=== PATIENT | female | born 1950 | race Caucasian/White ===

== ENCOUNTER 2016-04-03 16:58 | Emergency (ER) | payer BC ==
[~2016-04-03] VITALS: Ht 154.9 cm; Wt 51.8 kg
[~2016-04-03 16:58] MED LIST: ASPI-589 PO; BSP15 PO; DIVA500T3 PO; DULO60CA44 PO; FLUR15CA12 PO; LTHCR300 PO; RASA1TAB PO; SYN75 PO
[2016-04-03 17:01] VITALS: TEMP 36.6; Ht 154.9 cm; Wt 51.8 kg
--- NOTE | 2016-04-03 17:41 | EMERGENCY ROOM VISIT NOTE ---
History Report prepared by Tanmay: Chelita Tong Under the Supervision of: Dr. Savita Macias M.D. First contact with patient: 17:14 Chief Complaint: MENTAL HEALTH EVALUATION Stated Complaint: SEVERE MENTAL PROBLEMS History of Present Illness The patient is a 66 year old female who presents to the Emergency Room with complaints of constant depression beginning 6 weeks ago. The patient states that she has a history of depression over the last few years. She reports that her in July and the holiday season has been difficult without him. The patient's sister in-law notes that she lives at [facility] and has been depressed after her husbands passing. She states that she gets depressed around the holidays and has been especially depressed after her and her husbands birthdays and anniversary. The sister in-law reports that she has attempted suicide and overdose in the past. She notes associated tiredness, paranoia, lack of sleep, suicidal ideation, flat affect, and lack of eating. She denies any dehydration. The patient's sister in-law notes that the patient gets very fixated on things and paranoid. Source of History: patient, family Onset: 6 weeks ago Position: other (mental health) Quality: other (depressed) Timing: constant Modifying Factors (Worsening): other (holidays) Note: She notes associated tiredness, paranoia, lack of sleep, suicidal ideation, flat affect, and lack of eating. She denies any dehydration. Review of Systems See HPI for pertinent positives & negatives. A total of 10 systems reviewed and were otherwise negative. Past Medical & Surgical Medical Problems: (1) Alcoholism (2) Bipolar disorder (3) Parkinson disease Family History No pertinent family history stated. Social History Smoking Status: Never Smoker Marital Status: Housing Status: other ([facility]) Occupation Status: retired Current/Historical Medications Scheduled B-Complex Vitamins (B Complex), 1 CAP PO DAILY Cholecalciferol (Vitamin D3), 2,000 INTER.UNIT PO DAILY Fish Oil (Castile-3), 1 CAP PO DAILY Furosemide (Lasix), 40 MG PO Q2D Iron-Vitamin C (Vitron-C), 1 TAB PO DAILY Lamotrigine (Lamictal), 50 MG PO QAM Lamotrigine (Lamictal), 75 MG PO HS Levothyroxine Sodium (Synthroid), 75 MCG PO DAILYBB Lorazepam (Ativan), 0.5 TAB PO BID Lorazepam (Ativan), 1 MG PO HS Magnesium (Magnesium), 250 MG PO HS Mirtazapine (Remeron), 15 MG PO HS Olanzapine (Zyprexa), 7.5 MG PO HS Polyethylene Glycol 3350 (Glycolax), 17 GM PO UD Sennosides (Senokot), 2 TAB PO HS Vortioxetine HBr (Trintellix), 10 MG PO DAILY Scheduled PRN Bisacodyl (Dulcolax), 1 SUPP MN Q12 PRN for Constipation Lorazepam (Ativan), 0.5 MG PO Q8 PRN for Anxiety/Agitation Allergies Coded Allergies: Penicillins (Verified Allergy, Intermediate, Rash, 04/03/16) Physical Exam Vital Signs Date Time Temp Pulse Resp B/P Pulse Ox O2 Delivery O2 Flow Rate FiO2 04/03/16 22:50 84 18 151/101 100 04/03/16 21:18 78 18 141/90 99 Room Air 04/03/16 19:16 71 20 164/91 100 04/03/16 17:01 36.6 103 18 148/88 98 Room Air Physical Exam Vital signs reviewed. General: Well-appearing, flat affect, in no significant distress. HEENT: No scleral icterus, PERRLA, neck supple. Atraumatic. Cardiovascular: Regular rate and rhythm, no extra sounds. Pulmonary: Clear to auscultation bilaterally, normal work of breathing. Abdomen: Soft, nontender, nondistended, positive bowel sounds. Musculoskeletal: Atraumatic, no peripheral edema. Neurologic: Patient awake alert and oriented x 3, full strength in all 4 extremities. Cranial nerves 2 through 12 grossly intact. Skin: Warm, dry, no rash Psych: Positive suicidal ideation, negative homicidal ideation. Medical Decision & Procedures Laboratory Results 04/03/16 18:02 Red Blood Count 5.06, Mean Corpuscular Volume 87.2, Mean Corpuscular Hemoglobin 29.8, Mean Corpuscular Hemoglobin Concent 34.2, Mean Platelet Volume 9.2, Neutrophils (%) (Auto) 65.4, Lymphocytes (%) (Auto) 24.4, Monocytes (%) (Auto) 9.6, Eosinophils (%) (Auto) 0.2, Basophils (%) (Auto) 0.4, Neutrophils # (Auto) 3.40, Lymphocytes # (Auto) 1.27, Monocytes # (Auto) 0.50, Eosinophils # (Auto) 0.01, Basophils # (Auto) 0.02 04/03/16 18:02 Test 04/03/16 18:02 04/03/16 18:25 White Blood Count 5.20 K/uL (4.8-10.8) Red Blood Count 5.06 M/uL (4.2-5.4) Hemoglobin 15.1 g/dL (12.0-16.0) Hematocrit 44.1 % (37-47) Mean Corpuscular Volume 87.2 fL (80-100) Mean Corpuscular Hemoglobin 29.8 pg (25-34) Mean Corpuscular Hemoglobin Concent 34.2 g/dl (32-36) Platelet Count 387 K/uL (130-400) Mean Platelet Volume 9.2 fL (7.4-10.4) Neutrophils (%) (Auto) 65.4 % Lymphocytes (%) (Auto) 24.4 % Monocytes (%) (Auto) 9.6 % Eosinophils (%) (Auto) 0.2 % Basophils (%) (Auto) 0.4 % Neutrophils # (Auto) 3.40 K/uL (1.4-6.5) Lymphocytes # (Auto) 1.27 K/uL (1.2-3.4) Monocytes # (Auto) 0.50 K/uL (0.11-0.59) Eosinophils # (Auto) 0.01 K/uL (0-0.5) Basophils # (Auto) 0.02 K/uL (0-0.2) RDW Standard Deviation 44.5 fL (36.4-46.3) RDW Coefficient of Variation 13.9 % (11.5-14.5) Immature Granulocyte % (Auto) 0.0 % Immature Granulocyte # (Auto) 0.00 K/uL (0.00-0.02) Anion Gap 7.0 mmol/L (3-11) Est Creatinine Clear Calc Drug Dose 42.3 ml/min Estimated GFR () 68.5 Estimated GFR (Non- 59.1 BUN/Creatinine Ratio 13.8 (10-20) Calcium Level 9.1 mg/dl (8.5-10.1) Magnesium Level 2.6 mg/dl (1.8-2.4) Total Bilirubin 0.6 mg/dl (0.2-1) Direct Bilirubin 0.1 mg/dl (0-0.2) Aspartate Amino Transf (AST/SGOT) 14 U/L (15-37) Alanine Aminotransferase (ALT/SGPT) 25 U/L (12-78) Alkaline Phosphatase 91 U/L (45-117) Total Protein 7.3 gm/dl (6.4-8.2) Albumin 3.9 gm/dl (3.4-5.0) Salicylates Level < 1.7 mg/dl (2.8-20) Acetaminophen Level < 2 ug/ml (10-30) Ethyl Alcohol mg/dL < 3.0 mg/dl (0-3) Urine Color YELLOW Urine Appearance CLEAR (CLEAR) Urine pH 7.0 (4.5-7.5) Urine Specific [place] 1.000 (1.000-1.030) Urine Protein NEG (NEG) Urine Glucose (UA) NEG (NEG) Urine Ketones NEG (NEG) Urine Occult Blood NEG (NEG) Urine Nitrite NEG (NEG) Urine Bilirubin NEG (NEG) Urine Urobilinogen NEG (NEG) Urine Leukocyte Esterase NEG (NEG) Urine Opiates Screen NEG (NEG) Urine Methadone, Qualitative NEG (NEG) Urine Barbiturates NEG (NEG) Urine Phencyclidine (PCP) Level NEG (NEG) Ur Amphetamine/Methamphetamine NEG (NEG) MDMA (Ecstasy) Screen NEG (NEG) Urine Benzodiazepines Screen NEG (NEG) Urine Cocaine Metabolite NEG (NEG) Urine Marijuana (THC) NEG (NEG) Laboratory results per my review. ECG Indication: other Rate (beats per minute): 83 Rhythm: normal sinus Findings: no acute ischemic change, no ectopy, other (sinus arrythmia, QTC 413) ED Course 1729: Past medical records reviewed. The patient was evaluated in room A5. A complete history and physical examination was performed. 2030: Upon reevaluation, the patient is resting comfortably. I discussed laboratory results with the patient. She verbalized agreement of the treatment plan. The patient will be transferred to [facility] for further management and care. Medical Decision Differential diagnosis: Etiologies such as mood disorder, infection, hypoglycemia, electrolyte abnormalities, cardiac sources, intracerebral event, toxicologic, neurologic, as well as others were entertained. This patient was evaluated and appeared to be in no significant distress. She was medically cleared and evaluated by mental health. The patient was accepted for inpatient treatment at [facility]. Secure transportation arrangements were made. Impression Primary Impression: Suicidal ideation Additional Impression: Depression Scribe Attestation The scribe's documentation has been prepared under my direction and personally reviewed by me in its entirety. I confirm that the note above accurately reflects all work, treatment, procedures, and medical decision making performed by me. Departure Information Dispostion Mental Health Acute Care Referrals Blaire Weir M.D. (PCP) Patient Instructions A Signature Page, [facility]
[2016-04-03] MEDS ORDERED: [UNRECOGNIZED DRUG - CODE] PO (17:48)
[2016-04-03] MEDS ORDERED: OMEG10007 PO (17:48)
[2016-04-03] MEDS ORDERED: FERRTAB18 PO (17:48)
[2016-04-03] MEDS ORDERED: MAGN250T9 PO (17:48)
[2016-04-03] MEDS ORDERED: LORA-741 PO (17:48)
[2016-04-03] MEDS ORDERED: BISA10SU3 PR (17:48)
[2016-04-03] MEDS ORDERED: ATV/1 PO ×2 (17:48)
[2016-04-03] MEDS ORDERED: CHOL20007 PO (17:48)
[2016-04-03] MEDS ORDERED: B-CO1CAP3 PO (17:48)
[2016-04-03] MEDS ORDERED: MIRT15TA PO (17:48)
[2016-04-03] MEDS ORDERED: ZYP/75 PO (17:48)
[2016-04-03] MEDS ORDERED: VORT10TA12 PO (17:48)
[2016-04-03] MEDS ORDERED: SENN-63 PO (17:48)
[2016-04-03] MEDS ORDERED: FRS/40 PO (17:48)
[2016-04-03] MEDS ORDERED: LAMO25TA PO ×2 (17:48)
[2016-04-03 18:16] LABS: BASO % 0.4 %; BASO ABS # 0.02 K/uL (0-0.2); COMPLETE YES; EOS % 0.2 %; HEMATOCRIT 44.1 % (37-47); LYMPH % 24.4 %; LYMPH ABS # 1.27 K/uL (1.2-3.4); MEAN CELL VOLUME 87.2 fL (80-100); MEAN CORPUSCULAR HEMOGLOBIN 29.8 pg (25-34); MEAN CORPUSCULAR HGB CONC 34.2 g/dl (32-36); MEAN PLATELET VOLUME 9.2 fL (7.4-10.4); MONO % 9.6 %; NEUT % 65.4 %; PLATELET COUNT 387 K/uL (130-400); RED BLOOD COUNT 5.06 M/uL (4.2-5.4)
[2016-04-03 18:37] LABS: BUN/CREATININE RATIO 13.8 (10-20); CALCIUM 9.1 mg/dl (8.5-10.1); MAGNESIUM 2.6 mg/dl (1.8-2.4); POTASSIUM 3.5 mmol/L (3.5-5.1)
[2016-04-03 18:39] LABS: ACETAMINOPHEN < 2 ug/ml (10-30)
[2016-04-03 18:47] LABS: URINE APPEARANCE CLEAR (CLEAR); URINE BILIRUBIN NEG (NEG); URINE COLOR YELLOW; URINE NITRITE NEG (NEG); UROBILINOGEN NEG (NEG); ZZUR CULT IF INDIC CLEAN CATCH NO
[2016-04-03 18:48] LABS: MANUAL MICROSCOPIC REQUIRED? NO; REVIEW REQ? NO
[2016-04-03 19:14] LABS: BENZODIAZEPINE, URINE NEG (NEG); COCAINE,URINE NEG (NEG); PHENCYCLIDINE, URINE NEG (NEG)
[2016-04-03 22:50] VITALS: BP 151/101; PULSE 84; O2SAT 100
== END 2016-04-03 22:45 ==
LOC: C.EDB 16:59 → C.EDA 22:45
DX: R45.851 Suicidal ideations (principal); F32.9 Major depressive disorder, single episode, unspecified; G20 Parkinson's disease